=== PATIENT | female | born 1970 | race Caucasian/White ===

== ENCOUNTER 2018-12-17 09:28 | Emergency (ER) | payer OTHER ==
[~2018-12-17] VITALS: Ht 152.4 cm; Wt 67.1 kg
[~2018-12-17 09:28] MED LIST: ATENOLOL25 GM; SYNTHROID112 MCG; TESSALON PERLE100 MG PO; TUSSI PRES-B L120 M1 PO
[2018-12-17] MEDS ORDERED: MECLIZINE HCL25 MG PO (14:14)
== END 2018-12-17 14:38 | disposition home or self-care (01) ==
LOC: ER 09:28
DX: R42 Dizziness and giddiness (principal)

== ENCOUNTER 2018-12-25 12:12 | Emergency (ER) | payer OTHER ==
[~2018-12-25] VITALS: Ht 152.4 cm; Wt 65.8 kg
[~2018-12-25 12:12] MED LIST changes: +MECLIZINE HCL25 MG PO
== END 2018-12-25 17:17 | disposition home or self-care (01) ==
LOC: ER 12:12
DX: N28.89 Other specified disorders of kidney and ureter (principal)

== ENCOUNTER 2019-01-12 08:08 | Outpatient (CLI) | payer OTHER | END 2019-01-12 17:00 | disposition home or self-care (01) | LOC: TOM 08:08 | DX: C64.2 Malignant neoplasm of left kidney, except renal pelvis (principal) ==

== ENCOUNTER 2020-05-06 10:00 | Outpatient (CLI) | payer OTHER | END 2020-05-06 10:22 | disposition home or self-care (01) | LOC: SONOGRAMA 10:00 → MAMO-SONO 10:15 → SONOGRAMA 10:22 | PROVIDERS: ATTEND Internal Medicine Endocrinology, Diabetes & Metabolism | DX: E04.2 Nontoxic multinodular goiter (principal) ==

== ENCOUNTER 2020-05-27 08:21 | Outpatient (CLI) | payer OTHER | END 2020-05-27 08:40 | disposition home or self-care (01) | LOC: MAMO-SONO 08:21 | PROVIDERS: ATTEND Obstetrics & Gynecology | DX: Z12.31 Encounter for screening mammogram for malignant neoplasm of breast (principal); N60.21 Fibroadenosis of right breast; N60.22 Fibroadenosis of left breast ==

== ENCOUNTER 2020-06-14 07:20 | Outpatient (CLI) | payer OTHER | END 2020-06-14 07:29 | disposition home or self-care (01) | LOC: NUCLEAR 07:20 | PROVIDERS: ATTEND Obstetrics & Gynecology | DX: M81.0 Age-related osteoporosis without current pathological fracture (principal) ==

== ENCOUNTER 2021-04-06 11:39 | Outpatient (CLI) | payer OTHER | END 2021-04-06 12:13 | disposition home or self-care (01) | LOC: MRI 11:39 | PROVIDERS: ATTEND Internal Medicine | DX: G93.89 Other specified disorders of brain (principal); G43.009 Migraine without aura, not intractable, without status migrainosus | CPT/HCPCS: 70553 ==

== ENCOUNTER 2021-08-01 10:16 | Outpatient (CLI) | payer OTHER | END 2021-08-01 10:34 | disposition home or self-care (01) | LOC: MAMO-SONO 10:16 | PROVIDERS: ATTEND Obstetrics & Gynecology | DX: N60.21 Fibroadenosis of right breast (principal); N60.22 Fibroadenosis of left breast; Z12.31 Encounter for screening mammogram for malignant neoplasm of breast ==

== ENCOUNTER 2023-09-25 10:55 | Outpatient (CLI) | payer OTHER | END 2023-09-25 10:56 | disposition home or self-care (01) | LOC: NUCLEAR 10:55 | PROVIDERS: ATTEND Obstetrics & Gynecology | DX: M81.0 Age-related osteoporosis without current pathological fracture (principal) ==

== ENCOUNTER → 2023-09-25 | Outpatient (CLI) | payer OTHER | END | disposition home or self-care (01) | LOC: MAMO-SONO 09:46 | PROVIDERS: ATTEND Obstetrics & Gynecology | DX: Z12.31 Encounter for screening mammogram for malignant neoplasm of breast (principal); N60.21 Fibroadenosis of right breast; N60.22 Fibroadenosis of left breast ==